=== PATIENT | male | born 1955 | race Caucasian/White ===

== ENCOUNTER 2016-07-15 09:36 | Outpatient (CLI) | payer OTHER ==
[2016-07-15 13:48] LABS: #Basophils 0.1 thou/uL (0.0-0.2); #Eosinphils 0.1 thou/uL (0.0-0.7); #Lymphocytes 2.1 thou/uL (1.20-3.40); #Monocytes 0.6 thou/uL (0.11-0.59); #Neutrophils 4.4 thou/uL (1.40-6.50); %Basophils 1.5 % (0.0-1.0); %Eosinophils 1.2 % (0.0-10.0); %Lymphocytes 28.9 % (21.0-51.0); %Monocytes 8.1 % (0.0-10.0); %Neutrophils 60.4 % (42.0-75.0); Hemoglobin 16.1 g/dL (14.0-18.0); Mean Corpuscular HGB CONC 33.4 g/dL (32.0-36.0); Mean Corpuscular Hemoglobin 30.5 pg (27.0-31.0); Mean Corpuscular Volume 91.4 fl (80.0-94.0); Mean Platelet Volume 8.1 fL (7.4-10.4); Platelet Count 212 thou/uL (130-400); RBC Distribution Width 11.9 % (11.5-14.5); Red Blood Cell (RBC) Count 5.29 mill/uL (4.70-6.10); White Blood Cell (WBC) Count 7.4 thou/uL (4.8-10.8)
[2016-07-15 13:52] LABS: ALT (SGPT) 34 U/L (0-55); AST (SGOT) 23 U/L (5-34); Albumin 4.7 g/dL (3.4-4.8); Alkaline Phosphatase 81 U/L (40-150); Anion Gap 16 mmol/L (10-20); BUN (Urea Nitrogen) 19 mg/dL (8.4-25.7); Bilirubin, Direct 0.2 mg/dL (0.1-0.3); Bilirubin, Total 0.6 mg/dL (0.2-1.2); Calc. Creatinine Clearance 0 mL/min (70-130); Calcium 9.8 mg/dL (7.8-10.44); Carbon Dioxide 26 mmol/L (23-31); Cardiac Risk 3.6 (Less than 4.5); Chloride 103 mmol/L (98-107); Cholesterol 196 mg/dL (< 200 Desired); Estimated GFR-MDRD 86; Glucose 105 mg/dL (80-115); HDL Cholesterol 55 mg/dL (>60 Neg Risk); LDL Cholesterol, Calculated 127 mg/dL; Potassium 4.1 mmol/L (3.5-5.1); Protein, Total 7.5 g/dL (5.8-8.1); Sodium 141 mmol/L (136-145); Triglycerides 69 mg/dL (Less than 150)
[2016-07-15 13:58] LABS: Hemoglobin A1c 5.3 % (4.0-6.0)
[2016-07-15 14:13] LABS: PSA-Asymptomatic (SCREENING) 0.99 ng/mL (0-4.0); Thyroid Stimulating Hormone 1.8851 uIU/mL (0.35-4.94)
== END 2016-07-15 09:37 | disposition home or self-care (01) ==
LOC: NAVSJIPCSP 09:36
PROVIDERS: ATTEND Family Medicine
DX: E78.00 Pure hypercholesterolemia, unspecified (principal); N40.0 Benign prostatic hyperplasia without lower urinary tract symptoms; K21.9 Gastro-esophageal reflux disease without esophagitis; I10 Essential (primary) hypertension; M75.42 Impingement syndrome of left shoulder; H04.129 Dry eye syndrome of unspecified lacrimal gland; L57.0 Actinic keratosis; Z79.899 Other long term (current) drug therapy; X32.XXXA Exposure to sunlight, initial encounter
CPT/HCPCS: 36415; 80048; 80061; 80076; 83036; 84443; 85025; G0103

== ENCOUNTER 2018-06-28 07:26 | Outpatient (CLI) | payer OTHER ==
--- NOTE | 2018-06-28 08:06 | ULT ---
US Abdomen Limited History: [Abdominal pain. Right upper quadrant pain.] Comparison: None. Findings: Real-time grayscale and color evaluation of the right upper quadrant of the abdomen was per formed. Hepatic echotexture is normal. No mass. Small stones within the gallbladder. Gallbladder wall thickness is normal. Sonographic Snider sign is negative. Common bile duct measures 4 mm. Right kidney measures 10.7 x 5.8 x 4.5 cm. No renal mass, hydronephro sis, or abnormal calcifications. Impression: Cholelithiasis without cholecystitis.
== END 2018-06-28 07:27 | disposition home or self-care (01) ==
LOC: NAV ULT 07:26
PROVIDERS: ATTEND Family Medicine
DX: R10.84 Generalized abdominal pain (principal); K80.20 Calculus of gallbladder without cholecystitis without obstruction
CPT/HCPCS: 76705

== ENCOUNTER 2018-08-27 08:32 | Outpatient (CLI) | payer OTHER ==
--- NOTE | 2018-08-27 09:06 | RAD ---
XR Foot Lt 3 View STANDARD History: Injury. Contusion. Comparison: Radiograph August 15, 2018 Findings: Degenerative changes of the midfoot at the Lisfranc interval. Capsular calcification second metatarsal phalangeal joint. No acute displaced fracture or malalignment is appreciated. Small plantar and dorsal calcaneal spurs. Impression: Moderate mid foot soft tissue swelling.
--- NOTE | 2018-08-27 11:03 | RAD ---
LEFT ANKLE 3 VIEWS: Date: 08/27/18 HISTORY: Injury of left foot and ankle from trauma 11 days ago. COMPARISON: 08/15/18. FINDINGS: There is some persistent but improved soft tissue swelling of the lower leg and ankle. Degenerative c hanges with Achilles and plantar enthesophytes. Evidence for an os trigonum. IMPRESSION: No acute fracture or dislocation. Persistent soft tissue swelling. Given persistent swelling and pain, consider additional imaging with MRI for additional information. POS: [facility]
== END 2018-08-27 08:33 | disposition home or self-care (01) ==
LOC: NAV RAD 08:32
PROVIDERS: ATTEND Family Medicine
DX: S90.32XD Contusion of left foot, subsequent encounter (principal); M79.89 Other specified soft tissue disorders; M25.572 Pain in left ankle and joints of left foot

== ENCOUNTER 2020-10-28 10:08 | Outpatient (CLI) | payer OTHER, MEDICARE | END 2020-10-28 10:09 | disposition home or self-care (01) | LOC: NAV RAD 10:08 | PROVIDERS: ATTEND Family Medicine | DX: M54.2 Cervicalgia (principal); M47.812 Spondylosis without myelopathy or radiculopathy, cervical region; M53.2X2 Spinal instabilities, cervical region; I65.29 Occlusion and stenosis of unspecified carotid artery | CPT/HCPCS: 72050 ==